=== PATIENT | male | born 1965 | race African-American/Black ===

== ENCOUNTER 2017-05-03 23:28 | Emergency (ER) | payer MEDICARE, MEDICAID ==
[~2017-05-03] VITALS: Ht 172.7 cm; Wt 63.0 kg
[~2017-05-03 23:28] MED LIST: FOLI1TAB15 PO; PERCOCET; VICOT PO
[2017-05-04] MEDS ORDERED: KETOROLAC TROMETHAMINE 30 MG/ML VIAL IVP ONE (00:45)
[2017-05-04] MEDS ORDERED: BACITRACIN 0.9 GM PACKET OINTMENT TP ONE (00:45)
[2017-05-04] MEDS ORDERED: ONDANSETRON HCL 4 MG/2 ML VIAL IVP ONE (00:45)
[2017-05-04] MEDS ORDERED: CefTRIAXone SODIUM 1 GM in DEXTROSE 5%-WATER 10 ML IV ONE (00:45)
[2017-05-04] MEDS ORDERED: POVIDONE-IODINE 10% 120 ML SOLUTION TP ONE (00:45)
[2017-05-04] MEDS ORDERED: HYDROmorphone 2 MG/ML SYRINGE IVP ONE (00:45)
[2017-05-04 01:57] VITALS: BP 125/65
== END 2017-05-04 02:28 | disposition home or self-care (01) ==
LOC: EMS 23:29
DX: S71.132A Puncture wound without foreign body, left thigh, initial encounter (principal); S80.211A Abrasion, right knee, initial encounter; F17.210 Nicotine dependence, cigarettes, uncomplicated; Z88.6 Allergy status to analgesic agent; Z79.899 Other long term (current) drug therapy; W34.09XA Accidental discharge from other specified firearms, initial encounter; Y93.01 Activity, walking, marching and hiking; Y92.830 Public park as the place of occurrence of the external cause; Y99.8 Other external cause status
CPT/HCPCS: 73552; 96365; 96375; 99284; J0696; J1170; J1885; J2405; J7060